=== PATIENT | female | born 1960 | race Caucasian/White ===

== ENCOUNTER → 2016-07-30 | Outpatient (CLI) | payer OTHER ==
--- NOTE | 2016-07-30 10:43 | DX ---
Left Hip, Two Views History: Postoperative follow-up; comparison June 13, 2016. Findings: Postoperative changes of total left hip arthroplasty are seen. The hardware is intact and t here is no radiographic evidence for loosening. Alignment is anatomic. Impression: Stable appearance of total left hip arthroplasty with no complication identified.
== END ==
LOC: BMCIMAGING 10:02
PROVIDERS: ATTEND Physician Assistant
DX: Z09 Encounter for follow-up examination after completed treatment for conditions other than malignant neoplasm (principal); Z96.642 Presence of left artificial hip joint

== ENCOUNTER → 2016-12-19 | Outpatient (CLI) | payer OTHER | LOC: BMCIMAGING 11:57 | PROVIDERS: ATTEND Orthopaedic Surgery | DX: Z47.89 Encounter for other orthopedic aftercare (principal); Z96.642 Presence of left artificial hip joint ==